=== PATIENT | female | born 1985 | race Caucasian/White ===

== ENCOUNTER 2016-12-15 10:47 | Emergency (ER) | payer MEDICAID, OTHER ==
[2016-12-15] MEDS ORDERED: KETOROLAC TROMETHAMINE 60 MG/2 ML VIAL IM ONE (11:02)
[2016-12-15 11:10] VITALS: BP 131/71
--- NOTE | 2016-12-15 11:35 | ED Physician Documentation ---
Upper Extremity Injury - HISTORIAN Historian: patient - HPI Stated Complaint: right hand swelling/pain Chief Complaint: Upper Back Injury/ Pain Onset: other (Thursday) Duration: worse Context: fall Associated Symptoms: tingling, numbness distally (right thumb and 1st digit) Further Comments: yes (31 year old female patient presents with right hand pain ; c/o numbness and pain in right thumb and first digit. Reports a fall on Thursday, states she put her right hand down to catch herself; increase pain, difficulty griping and holding things.) - ROS CONST: no problems CVS/RESP: none NEURO: none MS/SKIN/LYMPH: none GI/: denies: problems urinating, nausea, vomiting - PAST HX Past History: Rt handed, other (Bilateral carpal tunnel surgery Sep 2016; BLT, c -section) Allergies/Adverse Reactions: Allergies Allergy/AdvReac Type Severity Reaction Status Date / Time cephalexin monohydrate Allergy Hives Verified 12/15/16 11:02 [From KeGeorgina Goodman] - SOCIAL HX Smoking History: cigarettes - FAMILY HX Family History: none - VITAL SIGNS Vital Signs: Vital Signs Temp Pulse Resp BP Pulse Ox 98.2 F 75 18 131/71 97 12/15/16 11:37 12/15/16 11:37 12/15/16 11:37 12/15/16 11:37 12/15/16 11:37 - REVIEWED ASSESSMENTS Nursing Assessment Reviewed: Yes Vitals Reviewed: Yes Progress - Progress Progress: Patient with positive Tinel; unable to complete Phalen due to pain. Wrist xray negative. Place in cock up splint for comfort; medicated with toradal IM while in ER. Instructed to follow up with her orthopedic doctor. ED Results Lab/Radiology - Orders Orders: ED Orders Category Date Time Status Cock-Up Splint 1T Care 12/15/16 11:47 Active WRIST 3 VIEWS OR MORE [RAD] Stat Exams 12/15/16 Taken Ketorolac Tromethamine [Toradol] Med 12/15/16 11:02 Discontinued 60 mg IM NOW ONE Upper Extremity Injury Physic - Physical Exam General Appearance: mild distress Hand: no evidence of injury, limited ROM, soft tissue tenderness, swelling Wrist: no evidence of injury, limited ROM, pain, soft tissue tenderness, swelling Neuro/Vascular/Tendon: no vascular compromise, motor nml, sensation nml, ROM limited by pain Skin: warm,dry Resp/CVS: chest non-tender, breath sounds nml, heart sounds nml, no resp. distress, lungs clear, reg. rate & rhythm Abdomen: non-tender, pelvis stable Discharge Clincal Impression: Carpal tunnel syndrome of right wrist Wrist pain, acute Qualifiers: Laterality: right Qualified Code(s): M25.531 - Pain in right wrist Referrals: Primary Doctor,No [Primary Care Provider] - 2 Days Additional Instructions: Rest ice Cock up splint as needed for comfort Make a follow up appointment to see your orthopedic doctor for reevaluation in the next 1-2 days. Condition: Stable Disposition: 01 HOME, SELF-CARE Decision to Admit: NO Decision Time: 11:33
--- NOTE | 2016-12-15 14:24 | Diagnostic Imaging Report ---
[facility] [address] [facility] [address] Report Submission Date: December 15, 2016 11:34:51 AM CDT Patient Study Name: GIANFRANCO TORRE Date: December 15, 2016 11:04:27 AM CDT Modality Type: CR Gender: F Description: UPPER EXTREMITY : 85 Institution: [facility] Physician SILVIA DEVI (FREIGHT HUSTLER) - ER Right wrist -three views CLINICAL HISTORY: Fall a couple of weeks ago. Difficulty gripping objects. FINDINGS: Examination of the right wrist in palmar, lateral and oblique views fails to demonstrate evidence of fracture, dislocation or other bone or joint pathology. Electronically signed on December 15, 2016 11:34:51 AM CDT by: Oumar BREEN
== END 2016-12-15 11:37 | disposition home or self-care (01) ==
LOC: ED 10:47
DX: G56.01 Carpal tunnel syndrome, right upper limb (principal); M25.531 Pain in right wrist
CPT/HCPCS: 73110; J1885; L3908; 96372; 99283

== ENCOUNTER 2018-05-17 11:55 | Outpatient (CLI) | payer MEDICAID, OTHER ==
--- NOTE | 2018-05-17 19:27 | Diagnostic Imaging Report ---
CHRIS BATES [facility] [address] [facility] [address] [address] Report Submission Date: May 17, 2018 12:57:37 PM CDT Patient Study Name: GIANFRANCO TORRE Date: May 17, 2018 12:02:59 PM CDT Modality Type: DX Gender: F Description: SPINE : 85 Institution: [facility] Physician: CHRIS BATES Examination: Plain film lumbar spine History: PT STATES BACK PAIN X2 YEARS WITH AN INCREASE IN PAIN X 6 MONTHS. PT STATES NO KNOWN TRAUMA. (Hx) Findings: 3 views of the lumbar spine demonstrate normal height. No anterior compression. Few scattered osteophytes. No soft tissue abnormalities. Impression: No vertebral body compression deformity. If patient is experiencing neurologic symptoms, consider obtaining MRI to further evaluate. Electronically signed on May 17, 2018 12:57:37 PM CDT by: Tavo BREEN
== END 2018-05-17 11:56 ==
LOC: RAD 11:55
PROVIDERS: ATTEND Nurse Practitioner Family
DX: M54.41 Lumbago with sciatica, right side (principal); G89.29 Other chronic pain
CPT/HCPCS: 72100